=== PATIENT | male | born 1995 | race Caucasian/White ===

== ENCOUNTER 2017-09-12 20:02 | Emergency (ER) | payer SELFPAY ==
[2017-09-12 20:39] VITALS: BP 134/85
[2017-09-12] MEDS ORDERED: HYDROCORTISONE ACETATE 25 MG SUPP.RECT PR ONE (21:12)
--- NOTE | 2017-09-12 21:15 | ER Document Report ---
ED General - General Chief Complaint: Rectal Bleeding Stated Complaint: RECTAL BLEEDING Time Seen by Provider: 09/12/17 21:00 Mode of Arrival: Ambulatory Information source: Patient, Parent TRAVEL OUTSIDE OF THE [place] IN LAST 30 DAYS: No - HPI Notes: Patient is a 22-year-old male presents emergency department with report of a 1 year history of hemorrhoids and states that the hemorrhoids are currently poking out as of yesterday and is having consistent bleeding. The patient reports rectal pain, but he denies any abdominal pain. He reports no significant diarrhea, but states he has a bowel movement every other day and may get mild constipation. He denies any other abnormal bleeding or bruising. He reports no weakness. No rectal intercourse. The patient denies any dysuria. The patient has never had a colonoscopy previously. He has never been evaluated for hemorrhoids in the past. - Related Data Allergies/Adverse Reactions: Penicillins Allergy (Verified 09/12/17 20:09) Past Medical History - General Information source: Patient - Social History Smoking Status: Never Smoker Frequency of alcohol use: None Drug Abuse: None Lives with: Family Family History: None, Other - No family history of colon cancer or polyps, but there is a family history of hemorrhoids. Review of Systems - Review of Systems Notes: REVIEW OF SYSTEMS: CONSTITUTIONAL : Denies fever, chills, or sweats. Denies recent illness. EENT: Denies eye, ear, throat, or mouth pain or symptoms. Denies nasal or sinus congestion or discharge. Denies throat, tongue, or mouth swelling or difficulty swallowing. CARDIOVASCULAR: Denies chest pain. Denies palpitations or racing or irregular heart beat. Denies ankle edema. RESPIRATORY: Denies cough, cold, or chest congestion. Denies shortness of breath, difficulty breathing, or wheezing. GASTROINTESTINAL: Denies abdominal pain or distention. Denies nausea, vomiting , or diarrhea. Denies blood in vomitus. Denies black, tarry stools. Denies constipation. GENITOURINARY: Denies difficulty urinating, painful urination, burning, frequency, blood in urine, or discharge. MUSCULOSKELETAL: Denies back or neck pain or stiffness. Denies joint pain or swelling. SKIN: Denies rash, lesions or sores. HEMATOLOGIC : Denies easy bruising or bleeding. LYMPHATIC: Denies swollen, enlarged glands. NEUROLOGICAL: Denies confusion or altered mental status. Denies passing out or loss of consciousness. Denies dizziness or lightheadedness. Denies headache. Denies weakness or paralysis or loss of use of either side. Denies problems with gait or speech. Denies sensory loss, numbness, or tingling. Denies seizures. PSYCHIATRIC: Denies anxiety or stress. Denies depression, suicidal ideation, or homicidal ideation. ALL OTHER SYSTEMS REVIEWED AND NEGATIVE. Dictation was performed using [employer] voice recognition software Physical Exam - Vital signs Vitals: Temp Pulse Resp BP Pulse Ox 98.7 F 108 H 16 134/85 H 98 09/12/17 20:35 09/12/17 20:35 09/12/17 20:35 09/12/17 20:35 09/12/17 20:35 - Notes Notes: PHYSICAL EXAMINATION: GENERAL: Well-appearing, well-nourished and in no acute distress. HEAD: Atraumatic, normocephalic. EYES: Pupils equal round and reactive to light, extraocular movements intact, sclera anicteric, conjunctiva are normal. ENT: Nares patent, oropharynx clear without exudates. Moist mucous membranes. NECK: Normal range of motion, supple without lymphadenopathy LUNGS: Breath sounds clear to auscultation bilaterally and equal. No wheezes rales or rhonchi. HEART: Regular rate and rhythm without murmurs ABDOMEN: Soft, nontender, nondistended abdomen. No guarding, no rebound. No masses appreciated. Musculoskeletal: Normal range of motion, no pitting or edema. No cyanosis. NEUROLOGICAL: Cranial nerves grossly intact. Normal speech, normal gait. Normal sensory, motor exams PSYCH: Normal mood, normal affect. SKIN: Warm, Dry, normal turgor, no rashes or lesions noted. Rectal exam shows protruding hemorrhoids with some mild inflammation. No evidence for infection and no obvious thrombosis noted. No obvious fissure appreciated. On exam using surgical lubricant, I was able to gently push the hemorrhoids back into place and they have definitely appeared to be internal hemorrhoids. Course - Re-evaluation Re-evalutation: 09/12/17 21:26 No clinical suggestion for significant infection or other abnormality. Patient was told that I could not exclude colon polyps or other abnormalities, and he would need a follow-up colonoscopy to evaluate for this further. No clinical suggestion for significant GI blood loss given the mild bright red blood which was observed coming from the hemorrhoids . - Vital Signs Vital signs: Temp Pulse Resp BP Pulse Ox 98.7 F 108 H 16 134/85 H 98 09/12/17 20:35 09/12/17 20:35 09/12/17 20:35 09/12/17 20:35 09/12/17 20:35 Discharge - Discharge Clinical Impression: Hemorrhoid Qualifiers: Hemorrhoid type: unspecified Qualified Code(s): K64.9 - Unspecified hemorrhoids Condition: Stable Disposition: HOME, SELF-CARE Instructions: HC Hemorrhoid Cream ([facility]), Hemorrhoids ([facility]), Constipation ([facility]) Additional Instructions: You should have at least one bowel movement per day. If you become constipated , the hemorrhoids get worse. Take a laxative as needed. Warm water sitz baths or Epsom salt baths can help to shrink the hemorrhoids. Apply hemorrhoid cream to help shrink the hemorrhoids. You need a follow-up colonoscopy to better evaluate the hemorrhoids and rule out other possibilities. Drink plenty of fluids. Return to the emergency department case of severe bleeding, any fever or abdominal pain. Prescriptions: Ibuprofen 600 mg PO Q8HP PRN #30 tablet PRN Reason: Hydrocortisone [Anusol-Hc] 30 gm TP TID #30 cream..g. Referrals: ANABEL VIVEROS MD [ACTIVE STAFF] - Follow up as needed
[2017-09-12] MEDS ORDERED: IBUPROFEN 600 MG TABLET PO ONE (21:20)
== END 2017-09-12 21:49 | disposition home or self-care (01) ==
LOC: ER 20:02
DX: K64.9 Unspecified hemorrhoids (principal); K62.5 Hemorrhage of anus and rectum
CPT/HCPCS: 99283; J3490